=== PATIENT | female | born 1985 | race Caucasian/White ===

== ENCOUNTER → 2020-03-17 14:51 | Outpatient (BNVA) | payer BC, SELFPAY | PROVIDERS: Visit Provider Nurse Practitioner Family | DX: Z11.59 Encounter for screening for other viral diseases (principal) | CPT/HCPCS: 87635 ==

== ENCOUNTER 2021-06-13 08:48 | Emergency (ER) | payer SELFPAY ==
[2021-06-13 08:51] VITALS: BP 138/86; PULSE 80; RESP 14; TEMP 36.8; O2SAT 100; BMI 19.3
--- NOTE | 2021-06-13 08:52 | ED_ITS ---
HPI - Chest Pain General: Chief Complaint: Chest Pain Stated Complaint: cp, diff breathing, l arm pain Time Seen by Provider: 06/13/21 08:52 History of Present Illness: HPI narrative: Ms. Borden is a 35-year-old lady without significant past medical history presents emerged department due to chest discomfort. Symptom onset was this morning at rest. She endorses sharp pain in the left anterior chest occasionally on the right. She has a weird sensation of [id number] in the left arm and left jaw however this has been intermittent. She has mild associated shortness of breath. No other typical cardiac features. She does have a history of anxiety however this feels different with less shortness of breath than typical anxiety attacks. She denies infectious symptoms. Denies frequent episodes in the past. No other specific exacerbating or alleviating factors identified. Patient is a smoker. No family history of early cardiac or disease. No recent immobilization or travel, no history of clotting disorders. Review of Systems General: Reports: 10 or more systems reviewed and unremarkable except in HPI and below PFSH ED PFSH: Social History Smoking and tobacco status: never smoked Alcohol intake: never Physical Exam Narrative: EXAM NARRATIVE: GENERAL/CONSTITUTIONAL - well-appearing. No acute distress. Eyes -no scleral icterus, no conjunctival injection ENMT - Atraumatic external nose and ears. Moist mucous membranes NECK - supple. trachea midline CARDIOVASCULAR - regular rate and rhythm. RESPIRATORY -clear to auscultation bilaterally. ABDOMEN/GI - Nontender/Nondistended. MSK - Extremities without obvious deformity or tenderness to palpation SKIN - Warm, Dry NEURO - alert and appropriately oriented. s Moves all extremities equally. PSYCH -anxious Course ED course: - Patient was seen and evaluated by me at bedside - Patient placed on cardiac monitors, IV access obtained - Initial evaluation notable for anxious appearance, no acute distress. -Symptom treatment ordered - Labs notable for no significant hematologic or metabolic abnormality to explain patient's symptoms. Delta troponin negative. D-dimer negative. - Imaging notable for no lobar consolidation or other acute abnormality to explain symptoms - Upon serial reexamination after treatment the patient was somewhat improved - Based on patient history, evaluation, labs, and imaging as interpreted the most likely cause of the patient's condition is nonspecific chest pain - The results of ED evaluation were discussed with the patient including prescriptions and/or symptomatic cares (if applicable) including appropriate and responsible use, followup plan, and return precautions. The patient verbalized understanding and felt safe for discharge. - Patient discharged in satisfactory condition. Vital Signs: Vital signs: Vital Signs Temperature 98.3 F 06/13/21 08:51 Pulse Rate 72 06/13/21 12:30 Respiratory Rate 14 06/13/21 08:51 Blood Pressure 115/74 06/13/21 12:30 Pulse Oximetry 99 06/13/21 12:30 MDM - Chest Pain Medical Records: Attestation: I reviewed the patient's medical records. Lab Data: Attestation: I reviewed the patient's lab results. Labs: Lab Results 06/13/21 06/13/21 06/13/21 08:55 08:55 08:55 WBC 6.9 10^3/uL 10^3/ uL (4.0-10.0) RBC 4.61 10^6/uL 10^6 /uL (4.1-5.3) Hgb 15.2 g/dL g/dL (11.5-15.3) Hct 44.7 % % (37.0-47.0) MCV 97.0 fl fl (81-99) MCH 33.0 pg pg (28.0-34.0) MCHC 34.0 g/dL g/dL (30.0-36.0) RDW 12.0 % L % (12.1-15.1) Plt Count 265 10^3/cmm 10^3 /cmm (130-400) MPV 10.7 fL H fL (7.4-10.4) Neut % (Auto) 55.8 % % Lymph % (Auto) 30.6 % % Gonzales % (Auto) 9.8 % % Eos % (Auto) 2.9 % % Baso % (Auto) 0.6 % % Neut # (Auto) 3.83 10^3/uL 10^3 /uL (1.8-7.7) Lymph # (Auto) 2.1 10^3/uL 10^3/ uL (0.8-4.8) Gonzales # (Auto) 0.7 10^3/uL 10^3/ uL (0.2-0.9) Eos # (Auto) 0.2 10^3/uL 10^3/ uL (0.0-0.8) Baso # (Auto) 0.0 10^3/uL 10^3/ uL (0.0-0.1) Nucleated RBC % (a uto) 0 % % Nucleated RBCs # 0.0 /100WBC /100W BC D-Dimer Sodium 137 mmol/L mmol/L (136-145) Potassium 3.9 mmol/L mmol/L (3.5-5.1) Chloride 103 mmol/L mmol/L (98-107) Carbon Dioxide 21 mmol/L L mmol/ L (22-29) Anion Gap 16.9 (5-19) BUN 12 mg/dL mg/dL (6-20) Creatinine 0.6 mg/dL mg/dL (0.5-0.9) GFR Calculation 115.1 mL/min mL/m in (90-130) Glucose 97 mg/dL mg/dL (65-115) Calculated Osmolal ity 284 mOsm/kg L mOs m/kg (285-295) Calcium 9.3 mg/dL mg/dL (8.5-10.5) Total Bilirubin 0.3 mg/dL mg/dL (0.15-1.2) AST 13 U/L U/L (0-32) ALT 9 U/L U/L (0-33) Alkaline Phosphata se 40 IU/L IU/L (35-105) Troponin T Baselin e 6 ng/L ng/L (0-10) Troponin T 120 Min [place] Delta Troponin T Total Protein 7.7 g/dL g/dL (6.6-8.7) Albumin 4.8 g/dL g/dL (3.5-5.2) Globulin 2.9 g/dL g/dL (1.3-4.6) Lipase 21 U/L U/L (13-60) HCG, Qual 06/13/21 06/13/21 06/13/21 08:55 08:55 11:48 WBC RBC Hgb Hct MCV MCH MCHC RDW Plt Count MPV Neut % (Auto) Lymph % (Auto) Gonzales % (Auto) Eos % (Auto) Baso % (Auto) Neut # (Auto) Lymph # (Auto) Gonzales # (Auto) Eos # (Auto) Baso # (Auto) Nucleated RBC % (a uto) Nucleated RBCs # D-Dimer 0.39 ug/mIFEU ug/ mIFEU (0-0.59) Sodium Potassium Chloride Carbon Dioxide Anion Gap BUN Creatinine GFR Calculation Glucose Calculated Osmolal ity Calcium Total Bilirubin AST ALT Alkaline Phosphata se Troponin T Baselin e Troponin T 120 Min [place] 6.00 ng/L ng/L (0-10) Delta Troponin T 0 ABS# ABS# (0-10) Total Protein Albumin Globulin Lipase HCG, Qual Negative (Negative) EKG Data^: EKG 1: Attestation: I personally reviewed and interpreted this EKG as follows: EKG interpretation date: 06/13/21 EKG interpretation time: 08:58 Interpretation: Twelve-lead EKG shows a regular rhythm at a rate of 81. PA interval 131. QRS duration 86. QTc 417. Normal [place]. . Interpretation: Sinus rhythm. EKG 2: Attestation: I personally reviewed and interpreted this EKG as follows: EKG interpretation date: 06/13/21 EKG interpretation time: 11:27 Interpretation: Twelve-lead EKG shows a regular rhythm at a rate of 68. PA interval 129, QRS duration 90, QTc 411. Normal axis. Interpretation: Sinus rhythm. Discharge Plan Discharge Patient Disposition: Home Clinical Impression: Chest pain Condition: Stable Prescriptions: No Action No Known Home Medications RF: 0 Discharge Orders: Discharge ED (Routine); Ordered 06/13/21 Ordered By: Aman Sanchez Referrals: Mehnaz Valdivia FNP [Primary Care Provider] - Discharge Diet: Usual diet Discharge Activity: Resume usual activity Patient Instructions: Chest Pain (ED) Activity Restrictions/Additional Instructions: Thank you for visiting the emergency department. You were seen and evaluated for chest pain. The exact cause of your symptoms is unclear however it does not appear to be related to your heart or any specific identified cause that would require hospitalization at this time. Overall you are low risk for a cardiac cause of your chest pain. Please follow-up with your primary care provider. If this were to continue you may require further outpatient evaluation. You may use [id number] medications for symptoms however please do not exceed the daily recommended dosages. Please return to the emergency department for worsening symptoms or anything else that you are concerned about and feel needs emergency department evaluation. Coding Level of Care Code ED Building Surveyor for Kirti Fair
[2021-06-13 09:01] VITALS: BP 138/86; PULSE 78; O2SAT 99
--- NOTE | 2021-06-13 09:04 | ECG_ITS ---
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 Measurements Intervals [place] Rate: 81 P: 70 ND: 131 QRS: 72 QRSD: 86 T: 65 QT: 380 QTc: 441 Interpretive Statements SINUS RHYTHM WITH SINUS ARRHYTHMIA No previous ECG available for comparison Electronically Signed On 06-14-2021 21:57:43 STAINED GLASS GLAZIER HELPER by Jose C John M.D. [id number]
--- NOTE | 2021-06-13 09:04 | XRR_ITS ---
PROCEDURE INFORMATION: Exam: XR Chest Exam date and time: 06/13/2021 9:04 AM Age: 35 years old Clinical indication: Pain; Chest pressure; Additional info: Chest pain TECHNIQUE: Imaging protocol: XR of the chest. Views: 1 view. COMPARISON: CR XR chest 2V* [id number] 08/25/2020 11:08 AM FINDINGS: Lungs: Unremarkable. No consolidation. Pleural spaces: Unremarkable. No pleural effusion. No pneumothorax. Heart/Mediastinum: Unremarkable. No cardiomegaly. Bones/joints: Unremarkable. XR/XR chest 1V portable [id number] IMPRESSION: No acute findings. Radiation Dose CTDIVOL = (mGy): DLP = (mGy-cm)
[2021-06-13 09:11] LABS: Basophils % 0.6 %; Eosinophils # 0.2 10^3/uL (0.0-0.8); Eosinophils % 2.9 %; Hematocrit 44.7 % (37.0-47.0); Hemoglobin 15.2 g/dL (11.5-15.3); Lymphocytes # 2.1 10^3/uL (0.8-4.8); Lymphocytes % 30.6 %; Mean Platelet Volume 10.7 fL (7.4-10.4); Monocytes # 0.7 10^3/uL (0.2-0.9); Monocytes % 9.8 %; Neutrophils # 3.83 10^3/uL (1.8-7.7); Neutrophils % 55.8 %; Nucleated Red Blood Cells % 0 %; Platelet Count 265 10^3/cmm (130-400); Red Blood Count 4.61 10^6/uL (4.1-5.3); White Blood Count 6.9 10^3/uL (4.0-10.0)
[2021-06-13 09:15] LABS: HCG, Serum Qual Negative (Negative)
[2021-06-13] MEDS: ketorolac 30 mg/mL INJ 15 MG IVP (09:21)
[2021-06-13] MEDS: aspirin 81 mg Chew Tablet 324 MG PO (09:21)
[2021-06-13 09:23] LABS: Troponin(5th) Baseline 6 ng/L (0-10)
[2021-06-13 09:24] LABS: Alanine Aminotransferase 9 U/L (0-33); Albumin Level 4.8 g/dL (3.5-5.2); Alkaline Phosphatase 40 IU/L (35-105); Anion Gap 16.9 (5-19); Aspartate Amino Transferase 13 U/L (0-32); Blood Urea Nitrogen 12 mg/dL (6-20); Calcium 9.3 mg/dL (8.5-10.5); Carbon Dioxide 21 mmol/L (22-29); Chloride 103 mmol/L (98-107); Globulin 2.9 g/dL (1.3-4.6); Glomerular Filtration Rate 115.1 mL/min (90-130); Glucose 97 mg/dL (65-115); Lipase 21 U/L (13-60); Osmolality Calculated 284 mOsm/kg (285-295); Potassium 3.9 mmol/L (3.5-5.1); Sodium 137 mmol/L (136-145); Total Bilirubin 0.3 mg/dL (0.15-1.2); Total Protein 7.7 g/dL (6.6-8.7)
[2021-06-13 10:06] VITALS: BP 138/86; PULSE 66; O2SAT 99
[2021-06-13 10:18] LABS: D Dimer 0.39 ug/mIFEU (0-0.59)
--- NOTE | 2021-06-13 11:04 | ECG_ITS ---
[facility] Test Date: 2021-06-13 Pat Name: Amisha Borden Department: Room: Gender: Female Ed Teacher: : 1985 Requested By: Aman Sanchez Order Number: [id number] Niño MD: Jose C John M.D. Measurements Intervals [place] Rate: 68 P: 55 [place]: 129 QRS: 73 QRSD: 90 T: 57 QT: 395 QTc: 420 Interpretive Statements SINUS RHYTHM SEPTAL MYOCARDIAL INFARCTION , OF INDETERMINATE AGE [40+ ms Q WAVE IN V1/V2] Compared to ECG 06/13/2021 08:57:58 Myocardial infarct finding now present Sinus arrhythmia no longer present Electronically Signed On 06-14-2021 22:00:16 TATTOO ARTIST by Jose C John M.D. [id number]
[2021-06-13] MEDS: acetaminophen 325 mg Tablet 650 MG PO (11:44)
[2021-06-13] MEDS: lidocaine 2% viscous 15 ML, aluminum-mag hydrox-simethicon 30 ML, sucralfate oral liq 1 GM PO (11:44)
[2021-06-13 11:47] VITALS: BP 99/72; PULSE 69; O2SAT 99
[2021-06-13 12:15] LABS: Troponin 5 2HR Delta 0 ABS# (0-10)
[2021-06-13 12:20] VITALS: BP 115/74; PULSE 67; O2SAT 98
[2021-06-13 12:30] VITALS: BP 115/74; PULSE 72; O2SAT 99
== END 2021-06-13 12:32 | disposition home or self-care (01) ==
PROVIDERS: Emergency Provider Emergency Medicine; PCP Nurse Practitioner
DX: R07.9 Chest pain, unspecified (principal)
CPT/HCPCS: 71045; 80053; 83690; 84484; 84703; 85025; 85378; 93005; 96374; 99284; J1885